=== PATIENT | male | born 1975 | race Caucasian/White ===

== ENCOUNTER → 2023-05-17 | Emergency (ER) | payer BC ==
[~2023-05-17] MED LIST: AMLODIPINE 10 MG TAB ONE; ASPIRIN 81 MG CHEWABLE TABLET ONE; NA CHLORIDE 0.9% 500 ML ONE
[2023-05-17 11:25] LABS: Absolute Lymphocytes (CBC) 1.5 K/uL (0.7-4.9); Hematocrit 42.4 % (39.6-49.0); MCV 99.1 fL (80-100); MPV 8.6 fL (7.6-11.3); Platelets 247 thou/uL (152-406); RBC Red Blood Cell Count 4.28 M/uL (4.33-5.43)
[2023-05-17 11:30] LABS: Protime INR 0.99
[2023-05-17 11:36] LABS: Specific Gravity < 1.005 (1.005-1.030); Urine Bacteria None Seen /HPF (<20); Urine Bilirubin NEGATIVE (Negative); Urine Blood Negative (Negative); Urine Clarity Clear (Clear); Urine Color Colorless (Yellow); Urine Glucose NEGATIVE (Negative); Urine Protein NEGATIVE (Negative); Urine RBC <5 /HPF (None Seen); Urine Urobilinogen Normal (Normal); Urine pH 6.5 (5.0-7.0)
--- NOTE | 2023-05-17 11:36 | RAD REPORT ---
EXAM DESCRIPTION: Len Single View05/17/2023 11:31 am CLINICAL HISTORY: COUGH COMPARISON: No comparisons TECHNIQUE: Portable AP view of the chest. FINDINGS: The lungs are clear. Mild diffuse hyperinflation. No pneumothorax or effusion. The cardio mediastinal contours are unremarkable. IMPRESSION: No acute cardiopulmonary process.
[2023-05-17 11:43] LABS: Albumin 3.7 g/dL (3.4-5.0); Bilirubin Direct 0.2 mg/dL (0-0.2); Bilirubin Indirect, Calculated 0.4 mg/dL (0.2-0.8); Bilirubin Total 0.6 mg/dL (0.2-1.0); Magnesium 2.4 mg/dL (1.6-2.4); Potassium 3.5 mEq/L (3.5-5.1); Protein, Total 7.7 g/dL (6.4-8.2)
[2023-05-17 11:43] LABS: Barbiturates NEGATIVE (NEGATIVE); Benzodiazepines NEGATIVE (NEGATIVE); Cocaine NEGATIVE (NEGATIVE); METHAMPHETAM NEGATIVE (NEGATIVE); Methadone NEGATIVE (NEGATIVE); Opiates NEGATIVE (NEGATIVE); Phencyclidine NEGATIVE (NEGATIVE); THC Cannibis NEGATIVE (NEGATIVE)
--- NOTE | 2023-05-17 11:45 | RAD REPORT ---
EXAM DESCRIPTION: CT - Head Brain Wo Cont - 05/17/2023 11:27 am CLINICAL HISTORY: HEADACHE COMPARISON: No comparisons TECHNIQUE: Noncontrast head CT images were obtained without IV contrast. Multiplanar reformats were generated and reviewed. All CT scans are performed using dose optimization technique as appropriate and may include automated exposure control or mA/KV adjustment according to patient size. FINDINGS: No intracranial hemorrhage, mass, or edema. Midline structures are unremarkable. Normal ventricular caliber for age. Martinez-white matter differentiation is preserved, without evidence of acute infarct. No abnormal extra- axial fluid collections. Mastoid air cells and visualized portions of the paranasal sinuses are clear. No acute bony findings. IMPRESSION: No evidence of an acute intracranial process.
--- NOTE | 2023-05-17 12:52 | EKG ---
Test Date: 2023-05-17 Test Time: 11:53:45 [place] Carver: NORMA MEASUREMENT RESULTS: Intervals: Rate: 99 SD: 152 QRSD: 90 QT: 362 QTc: 464 [place]: P: 84 SD: 152 QRS: 86 T: 73 INTERPRETIVE STATEMENTS: Normal sinus rhythm Normal ECG No previous ECG available for comparison Electronically Signed On 05-17-23 12:51:54 [employer] by Donal Garcia
--- NOTE | 2023-05-17 14:52 | EDPHYS ---
Physician Documentation [facility] Name: Juni Alvarado Age: 48 yrs Sex: Male : 1975 Arrival Date: 05/17/2023 Time: 10:52 Bed 4 Private MD: ED Physician Jakub Izquierdo HPI: 05/17 14:44 This 48 yrs old Male presents to ER via EMS with complaints of torres, htn chin tameka numbness of chin. 14:44 The patient complains of pain to the forehead. The patient describes the headache as tameka aching. Onset: The symptoms/episode began/occurred 1 day(s) ago. stress, htn , no cp. Associated signs and symptoms: Pertinent positives: paresthesias. Severity of symptoms: At its worst the pain was mild, in the emergency department the pain is unchanged. Headache History: The patient has had previous headaches and this one is similar to previous episodes. Severity of symptoms: At their worst the symptoms were mild in the emergency department the symptoms are unchanged. The patient has experienced similar episodes in the past, a few times. Historical: - Allergies: 11:04 No Known Allergies; rs5 - PMHx: 11:04 None; rs5 - PSHx: 11:04 None; rs5 - Immunization history:: Adult Immunizations unknown. - Social history:: Smoking status: Patient denies any tobacco usage or history of. - Family history:: not pertinent. ROS: 14:44 Constitutional: Negative for fever, chills, and weight loss, Eyes: Negative for injury, tameka pain, redness, and discharge, ENT: Negative for injury, pain, and discharge, Neck: Negative for injury, pain, and swelling, Cardiovascular: Negative for chest pain, palpitations, and edema, Respiratory: Negative for shortness of breath, cough, wheezing, and pleuritic chest pain, Abdomen/GI: Negative for abdominal pain, nausea, vomiting, diarrhea, and constipation, Back: Negative for injury and pain, : Negative for injury, bleeding, discharge, and swelling, MS/Extremity: Negative for injury and deformity, Skin: Negative for injury, rash, and discoloration, Psych: Negative for depression, anxiety, suicide ideation, homicidal ideation, and hallucinations, Allergy/Immunology: Negative for hives, rash, and allergies, Endocrine: Negative for neck swelling, polydipsia, polyuria, polyphagia, and marked weight changes, Hematologic/Lymphatic: Negative for swollen nodes, abnormal bleeding, and unusual bruising, 14:44 Neuro: Positive for headache, numbness, of the chin, Exam: 14:44 Constitutional: This is a well developed, well nourished patient who is awake, alert, tameka and in no acute distress. Head/Face: Normocephalic, atraumatic. Eyes: Pupils equal round and reactive to light, extra-ocular motions intact. Lids and lashes normal. Conjunctiva and sclera are non-icteric and not injected. Cornea within normal limits. Periorbital areas with no swelling, redness, or edema. ENT: Nares patent. No nasal discharge, no septal abnormalities noted. Tympanic membranes are normal and external auditory canals are clear. Oropharynx with no redness, swelling, or masses, exudates, or evidence of obstruction, uvula midline. Mucous membranes moist. Neck: Trachea midline, no thyromegaly or masses palpated, and no cervical lymphadenopathy. Supple, full range of motion without nuchal rigidity, or vertebral point tenderness. No Meningismus. Chest/axilla: Normal chest wall appearance and motion. Nontender with no deformity. No lesions are appreciated. Cardiovascular: Regular rate and rhythm with a normal S1 and S2. No gallops, murmurs, or rubs. Normal PMI, no JVD. No pulse deficits. Respiratory: Lungs have equal breath sounds bilaterally, clear to auscultation and percussion. No rales, rhonchi or wheezes noted. No increased work of breathing, no retractions or nasal flaring. Abdomen/GI: Soft, non-tender, with normal bowel sounds. No distension or tympany. No guarding or rebound. No evidence of tenderness throughout. Back: No spinal tenderness. No costovertebral tenderness. Full range of motion. Skin: Warm, dry with normal turgor. Normal color with no rashes, no lesions, and no evidence of cellulitis. MS/ Extremity: Pulses equal, no cyanosis. Neurovascular intact. Full, normal range of motion. Neuro: Awake and alert, GCS 15, oriented to person, place, time, and situation. Cranial nerves II-XII grossly intact. Motor strength 5/5 in all extremities. Sensory grossly intact. Cerebellar exam normal. Normal gait. Psych: Awake, alert, with orientation to person, place and time. Behavior, mood, and affect are within normal limits. 14:44 ECG was reviewed by the Attending Physician. 14:44 Musculoskeletal/extremity: DVT Exam: No signs of deep vein thrombosis. no pain, no swelling, no tenderness, negative Homans' sign noted on exam, no appreciated bluish discoloration, no erythema, no increased warmth, Vital Signs: 11:00 BP 158 / 96; Pulse 70; Resp 18; Temp 98(O); Pulse Ox 99% ; rs5 12:27 BP 150 / 91; Pulse 72; Resp 18; Pulse Ox 99% on R/A; rs5 14:18 BP 157 / 99; Pulse 89; Resp 18; Pulse Ox 99% on R/A; ph NIH Stroke Scale Scores: 14:44 NIHSS Score: 0 tameka [place] Coma Score: 14:44 Eye Response: spontaneous(4). Motor Response: obeys commands(6). Verbal Response: tameka oriented(5). Total: 15. 14:50 Eye Response: spontaneous(4). Motor Response: obeys commands(6). Verbal Response: tameka oriented(5). Total: 15. MDM: 11:07 Patient medically screened. tameka 14:50 Differential diagnosis: cluster headache, hypertensive headache, hyponatremia, tameka intracerebral hemorrhage, migraine, subarachnoid bleed, temporal arteritis, tension headache, trigeminal neuralgia. Data reviewed: vital signs, nurses notes, lab test result(s), EKG, radiologic studies, CT scan, plain films. Consideration of Admission/Observation Escalation of care including admission/observation considered. I considered the following discharge prescriptions or medication management in the emergency department Medications were administered in the Emergency Department. See MAR. Independent interpretation of the following test(s) in the Emergency Department EKG: See my EKG interpretation above. Test considered but Not performed: MRI: no mri brain. Care significantly affected by the following chronic conditions: Hypertension. Counseling: I had a detailed discussion with the patient and/or guardian regarding the historical points, exam findings, and any diagnostic results supporting the discharge/admit diagnosis, the presence of at least one elevated blood pressure reading (>120/80) during this emergency department visit, lab results, radiology results, the need for outpatient follow up, for definitive care, a egg worker, a family practitioner. 05/17 11:08 Order name: Basic Metabolic Panel; Complete Time: 13:37 [facility] 05/17 11:08 Order name: CBC with Diff; Complete Time: 13:37 [facility] 05/17 11:08 Order name: LFT's; Complete Time: 13:37 [facility] 05/17 11:08 Order name: Magnesium; Complete Time: 13:37 [facility] 05/17 11:08 Order name: NT PRO-BNP; Complete Time: 13:37 [facility] 05/17 11:08 Order name: PT-INR; Complete Time: 13:37 [facility] 05/17 11:08 Order name: Troponin HS; Complete Time: 13:37 [facility] 05/17 11:08 Order name: UDS; Complete Time: 13:37 [facility] 05/17 11:08 Order name: Urinalysis w/ reflexes; Complete Time: 13:37 [facility] 05/17 11:08 Order name: XRAY Chest (1 view); Complete Time: 13:37 [facility] 05/17 11:08 Order name: CT Head Brain wo Cont; Complete Time: 13:37 [facility] 05/17 11:08 Order name: EKG; Complete Time: 11:09 [facility] 05/17 11:08 Order name: Cardiac monitoring; Complete Time: 11:28 [facility] 05/17 11:08 Order name: EKG - Nurse/Tech; Complete Time: 12:22 [facility] 05/17 11:08 Order name: IV Saline Lock; Complete Time: 11:28 [facility] 05/17 11:08 Order name: Labs collected and sent; Complete Time: 11:28 [facility] 05/17 11:08 Order name: O2 Per Protocol; Complete Time: 11:28 [facility] 05/17 11:08 Order name: O2 Sat Monitoring; Complete Time: 11:28 [facility] EC:44 Rate is 99 beats/min. Rhythm is regular. QRS [place] is Normal. [place] interval is normal. QRS tameka interval is normal. QT interval is normal. No Q waves. T waves are Normal. No ST changes noted. Clinical impression: Normal ECG and No evidence of ischemia. Interpreted by me. Reviewed by me. Administered Medications: 11:15 Drug: NS 0.9% IV 500 ml IV at bolus once Route: IV; Rate: bolus; Site: left antecubital;rs5 11:35 Follow up: Response: No adverse reaction rs5 14:44 Drug: Aspirin PO Chewable Tablet 162 mg PO once Route: PO; rs5 15:06 Follow up: Response: No adverse reaction rs5 14:44 CANCELLED (Duplicate Order): norvasc5 mg PO once tameka 14:44 Drug: Norvasc PO 10 mg PO once Route: PO; rs5 15:06 Follow up: Response: No adverse reaction rs5 Disposition Summary: 05/17/23 14:52 Discharge Ordered Notes: Location: Home tameka Problem: new tameka Symptoms: have improved tameka Condition: Stable tameka Diagnosis - Headache tameka - Essential (primary) hypertension tameka - Tobacco abuse counseling tameka - Tobacco use tameka Followup: tameka - With: Private Physician - When: 2 - 3 days - Reason: Recheck today's complaints, Continuance of care, Re-evaluation by your physician Followup: tameka - With: Donal Garcia MD - When: 2 - 3 days - Reason: Recheck today's complaints, Re-evaluation by your physician Followup: tameka - With: Manny Billingsley DO - When: 2 - 3 days - Reason: Recheck today's complaints, Re-evaluation by your physician Discharge Instructions: - Discharge Summary Sheet tameka - Hypertension, Adult tameka - Steps to Quit Smoking tameka - Hypertension, Adult, [id number] tameka - Steps to Quit Smoking, [id number] tameka - How to Take Your Blood Pressure, [id number] tameka - Aspirin and Your Heart tameka - Managing Your Hypertension tameka Forms: - Medication Reconciliation Form tameka - Thank You Letter tameka - Antibiotic Education tameka - Prescription Opioid Use tameka - Patient Portal Instructions tameka - Leadership Thank You Letter [facility] Prescriptions: - Norvasc 5 mg Oral Tablet - take 1 tablet ORAL route once daily; 20 tablet; Refills: 0, Product Selection tameka Permitted NIH Stroke Scale - NIH Stroke Score Date: 05/17/2023 Time: 14:44 Total Score = 0 10. Dysarthria (speech clarity - read or repeat words) - 0(Normal) 11. Extinction and Inattention (visual/tactile/auditory/spatial/personal) - 0(No abnormality) 1a. Level of Consciousness (LOC) - 0(Alert) 1b. Level of Consciousness (LOC) (Month \T\ Age) - 0(Both) 1c. LOC Commands (Open \T\ Closes Eyes/Bilingual School Psychologist) - 0(Both) 2. Best Gaze (Lateral Gaze Paresis) - 0(Normal) 3. Visual Field Loss - 0(No visual loss) 4. Facial Palsy - 0(Normal) 5a. Left Arm: Motor (10-second hold) - 0(No drift) 5b. Right Arm: Motor (10-second hold) - 0(No drift) 6a. Left Leg: Motor (5-second hold - always test supine) - 0(No drift) 6b. Right Leg: Motor (5-second hold - always test supine) - 0(No drift) 7. Limb Ataxia (finger/nose \T\ heel/fernando - test with eyes open) - 0(Absent) 8. Sensory Loss (pinprick arms/legs/face) - 0(Normal) 9. Best Language: Aphasia (description/naming/reading) - 0(No aphasia) Initials: tameka Signatures: Dispatcher [employer] Jakub Mathis MD MD cha Sotelo, Ricky RN RN rs5 Corrections: (The following items were deleted from the chart) 14:44 14:43 Norvasc PO 5 mg PO once ordered. tameka english
--- NOTE | 2023-05-17 14:52 | ER ---
Nurse's Notes [facility] Name: Juni Alvarado Age: 48 yrs Sex: Male : 1975 Arrival Date: 05/17/2023 Time: 10:52 Bed 4 Private MD: Diagnosis: Headache;Essential (primary) hypertension;Tobacco abuse counseling;Tobacco use Presentation: 05/17 11:00 Chief complaint: EMS states: Pt complains of right sided chin numbness higher BP than rs5 usual. Pt states "I have been under a lot of stress lately". 11:00 Coronavirus screen: At this time, the client does not indicate any symptoms associated rs5 with coronavirus-19. Ebola Screen: No symptoms or risks identified at this time. Initial Sepsis Screen: Does the patient meet any 2 criteria? No. Patient's initial sepsis screen is negative. Does the patient have a suspected source of infection? No. Patient's initial sepsis screen is negative. Risk Assessment: Do you want to hurt yourself or someone else? Patient reports no desire to harm self or others. Onset of symptoms was May 17, 2023. 11:00 Method Of Arrival: EMS: [facility] rs5 11:00 Acuity: MAISHA 3 rs5 Historical: - Allergies: 11:04 No Known Allergies; rs5 - PMHx: 11:04 None; rs5 - PSHx: 11:04 None; rs5 - Immunization history:: Adult Immunizations unknown. - Social history:: Smoking status: Patient denies any tobacco usage or history of. - Family history:: not pertinent. Screenin:00 [facility] ED Fall Risk Assessment (Adult) History of falling in the last 3 months, rs5 including since admission No falls in past 3 months (0 pts) Confusion or Disorientation No (0 pts) Intoxicated or Sedated No (0 pts) Impaired Gait No (0 pts) Mobility Assist Device Used No (0 pt) Altered Elimination No (0 pt) Score/Fall Risk Level 0 - 2 = Low Risk Oriented to surroundings, Maintained a safe environment. 11:00 Abuse screen: Denies threats or abuse. Nutritional screening: No deficits noted. rs5 Tuberculosis screening: No symptoms or risk factors identified. Assessment: 11:00 General: Appears in no apparent distress. comfortable, Behavior is calm, cooperative. rs5 Pain: Denies pain. Neuro: Level of Consciousness is awake, alert, obeys commands, Oriented to person, place, time, situation, Waterproof Bag Sewer are equal bilaterally Moves all extremities. Gait is steady, Speech is normal, Facial symmetry appears normal, Pupils are PERRLA, Pupil Size: 3 mm Intact. Cardiovascular: Rhythm is regular. Respiratory: Respiratory effort is even, unlabored, Respiratory pattern is regular, symmetrical. 11:00 Neuro: Reports numbness to right side of chin, pt denies recent dental procedure or rs5 pain. GI: Abdomen is flat, non-distended, Abd is soft and non tender X 4 quads. : No signs and/or symptoms were reported regarding the genitourinary system. EENT: No signs and/or symptoms were reported regarding the EENT system. Derm: Skin is intact, Skin is pink, warm \\T\\ dry. Musculoskeletal: Circulation, motion, and sensation intact. Range of motion: intact in all extremities. 12:05 Reassessment: Patient and/or family updated on plan of care and expected duration. Pain rs5 level reassessed. Patient is alert, oriented x 3, equal unlabored respirations, skin warm/dry/pink. 13:10 Reassessment: No changes from previously documented assessment. rs5 14:12 Pain: Denies pain. Neuro: Denies numbness. Cardiovascular: Rhythm is regular. rs5 Respiratory: Respiratory effort is even, unlabored, Respiratory pattern is regular, symmetrical. 15:00 Reassessment: No changes from previously documented assessment. rs5 Vital Signs: 11:00 BP 158 / 96; Pulse 70; Resp 18; Temp 98(O); Pulse Ox 99% ; rs5 12:27 BP 150 / 91; Pulse 72; Resp 18; Pulse Ox 99% on R/A; rs5 14:18 BP 157 / 99; Pulse 89; Resp 18; Pulse Ox 99% on R/A; ph [place] Coma Score: 14:44 Eye Response: spontaneous(4). Motor Response: obeys commands(6). Verbal Response: tameka oriented(5). Total: 15. 14:50 Eye Response: spontaneous(4). Motor Response: obeys commands(6). Verbal Response: tameka oriented(5). Total: 15. NIH Stroke Scale Scores: 14:44 NIHSS Score: 0 tameka ED Course: 10:56 Patient arrived in ED. bd 11:00 Arm band placed on right wrist. rs5 11:00 Patient has correct armband on for positive identification. Bed in low position. Call rs5 light in reach. Side rails up X2. 11:00 No provider procedures requiring assistance completed. rs5 11:03 Cedric Marshall, ROSENDA is Primary Nurse. rs5 11:04 Triage completed. rs5 11:07 Jakub Izquierdo MD is Attending Physician. tameka 11:28 CT Head Brain wo Cont In Process Unspecified. EDMS 11:33 XRAY Chest (1 view) In Process Unspecified. EDMS 14:51 Donal Garcia MD is Referral Physician. [facility] 14:51 Manny Billingsley DO is Referral Physician. tameka 15:07 IV discontinued, intact, bleeding controlled, No redness/swelling at site. Pressure rs5 dressing applied. Administered Medications: 11:15 Drug: NS 0.9% IV 500 ml IV at bolus once Route: IV; Rate: bolus; Site: left antecubital;rs5 11:35 Follow up: Response: No adverse reaction rs5 14:44 Drug: Aspirin PO Chewable Tablet 162 mg PO once Route: PO; rs5 15:06 Follow up: Response: No adverse reaction rs5 14:44 CANCELLED (Duplicate Order): norvasc5 mg PO once tameka 14:44 Drug: Norvasc PO 10 mg PO once Route: PO; rs5 15:06 Follow up: Response: No adverse reaction rs5 Medication: 12:28 VIS not applicable for this client. rs5 Outcome: 14:52 Discharge ordered by . tameka 15:07 Discharged to home ambulatory, with family, rs5 15:07 Condition: stable 15:07 Discharge instructions given to patient, family, Instructed on discharge instructions, follow up and referral plans. medication usage, Demonstrated understanding of instructions, follow-up care, medications, Prescriptions given X 1, 15:07 Patient left the ED. rs5 NIH Stroke Scale - NIH Stroke Score Date: 05/17/2023 Time: 14:44 Total Score = 0 10. Dysarthria (speech clarity - read or repeat words) - 0(Normal) 11. Extinction and Inattention (visual/tactile/auditory/spatial/personal) - 0(No abnormality) 1a. Level of Consciousness (LOC) - 0(Alert) 1b. Level of Consciousness (LOC) (Month \\T\\ Age) - 0(Both) 1c. LOC Commands (Open \\T\\ Closes Eyes/Software Licensing Specialist) - 0(Both) 2. Best Gaze (Lateral Gaze Paresis) - 0(Normal) 3. Visual Field Loss - 0(No visual loss) 4. Facial Palsy - 0(Normal) 5a. Left Arm: Motor (10-second hold) - 0(No drift) 5b. Right Arm: Motor (10-second hold) - 0(No drift) 6a. Left Leg: Motor (5-second hold - always test supine) - 0(No drift) 6b. Right Leg: Motor (5-second hold - always test supine) - 0(No drift) 7. Limb Ataxia (finger/nose \\T\\ heel/fernando - test with eyes open) - 0(Absent) 8. Sensory Loss (pinprick arms/legs/face) - 0(Normal) 9. Best Language: Aphasia (description/naming/reading) - 0(No aphasia) Initials: tameka Signatures: Dispatcher [employer] EDXimena Powell Corey, MD MD cha Hall, Patricia RN RN Cedric Escalante RN RN rs5
== END ==
LOC: ER 10:52
DX: R51.9 Headache, unspecified (principal); I10 Essential (primary) hypertension; Z72.0 Tobacco use; Z71.6 Tobacco abuse counseling
CPT/HCPCS: 93005; 85025; 81001; 80048; 36415; 83735; 85610; 80076; 84484; 83880; 80307; 70450; 71045; J7040